=== PATIENT | male | born 1955 | race Caucasian/White ===

== ENCOUNTER 2019-03-29 13:43 | Inpatient (IN) | payer OTHER ==
[~2019-03-29] VITALS: Ht 182.9 cm; Wt 68.9 kg
[2019-03-29] MEDS ORDERED: TAMS-12 GT (13:56)
[2019-03-29] MEDS ORDERED: NA P133E RC (13:56)
[2019-03-29] MEDS ORDERED: LACT-96 GT (13:56)
[2019-03-29] MEDS ORDERED: TRAM50TA2 GT (13:56)
[2019-03-29] MEDS ORDERED: DOCU50LI GT (13:56)
[2019-03-29] MEDS ORDERED: OXYB5TAB11 GT (13:56)
[2019-03-29] MEDS ORDERED: ONDA4TAB5 GT (13:56)
[2019-03-29] MEDS ORDERED: ALBU2.5V38 IH ×2 (13:56)
[2019-03-29] MEDS ORDERED: THIA100T74 GT (13:56)
[2019-03-29] MEDS ORDERED: BISA10SU11 RC (13:56)
[2019-03-29] MEDS ORDERED: FAMO20TA8 GT (13:56)
[2019-03-29] MEDS ORDERED: AMIN30LI27 GT (13:56)
[2019-03-29] MEDS ORDERED: ACET-868 GT (13:56)
[2019-03-29] MEDS ORDERED: MAGN400O6 GT (13:56)
[2019-03-29] MEDS ORDERED: PANTOPRAZOLE 40 MG VIAL ONE (14:14)
[2019-03-29] MEDS ORDERED: PANTOPRAZOLE 40 MG VIAL IV ONE (14:30)
[2019-03-29] MEDS ORDERED: IV NS 0.9% 1,000 ML BAG IV ONE (14:30)
[2019-03-29 14:39] LABS: BASOPHILS % (AUTO) 0.5 % (0.0-2.0); EOSINOPHILS % (AUTO) 0.5 % (0.0-6.0); LYMPHOCYTES # (AUTO) 1.4 /CMM (0.8-4.8); LYMPHOCYTES % (AUTO) 19.5 % (20.0-44.0); MEAN CORPUSCULAR HGB CONC 35 g/dl (31.0-36.0); MEAN CORPUSCULAR VOLUME 93 fL (80-96); MONOCYTES % (AUTO) 13.6 % (2.0-12.0); NEUTROPHILS # (AUTO) 4.6 /CMM (1.8-8.9); NEUTROPHILS % (AUTO) 65.9 % (43.0-81.0); PLATELET COUNT (AUTO) 334 /CMM (150-450); RED BLOOD CELL COUNT(AUTO) 1.68 MIL/uL (4.5-6.0)
[2019-03-29 14:40] LABS: HEMATOCRIT 16 % (39-51); HEMOGLOBIN 5.5 g/dL (13.5-17.5)
[2019-03-29 14:52] LABS: CALCIUM, SERUM 8.8 mg/dL (8.5-10.1); CREATININE 0.6 mg/dL (0.6-1.3); POTASSIUM 3.4 mmol/L (3.5-5.1)
[2019-03-29 14:57] LABS: ALBUMIN 2.5 g/dL (3.4-5.0); BILIRUBIN,TOTAL 0.2 mg/dL (0.2-1.0); TOTAL PROTEIN, SERUM 6.6 g/dL (6.4-8.2)
[2019-03-29] MEDS ORDERED: TRAMADOL HCL 50 MG TABLET ONE (14:58)
[2019-03-29] MEDS ORDERED: BACLOFEN (10 MG) 10 MG TABLET ONE (14:58)
[2019-03-29] MEDS ORDERED: TRAMADOL HCL 50 MG TABLET PO ONE (15:00)
[2019-03-29] MEDS ORDERED: BACLOFEN (10 MG) 10 MG TABLET PO ONE (15:00)
[2019-03-29 15:40] LABS: LYMPHOCYTES % (MANUAL) 19 % (16-48); MONOCYTES % (MANUAL) 12 % (0-11.0); NEUTROPHILS % (MANUAL) 69 (42-76)
[2019-03-29] MEDS ORDERED: ONDANSETRON HCL/PF 4 MG/2 ML VIAL IV PRN (20:30)
[2019-03-29] MEDS ORDERED: HYDROCODONE/APAP 5/325MG 1 EACH TABLET PO PRN (20:30)
[2019-03-29] MEDS ORDERED: MORPHINE SULFATE INJ 2 MG/ML DISP.SYRIN IV PRN (20:30)
[2019-03-29] MEDS ORDERED: ACETAMINOPHEN 325 MG TABLET PO PRN (20:30)
[2019-03-29] MEDS: ALBUTEROL FS 2.5 MG/3 ML VIAL.NEB NEB SCH (21:00)
[2019-03-29 21:04] VITALS: BP 95/56
[2019-03-29 21:19] VITALS: BP 100/68
[2019-03-29] MEDS: TAMSULOSIN 0.4 MG CAP.SR.24H GT SCH (21:26)
[2019-03-29] MEDS: BACLOFEN (10 MG) 10 MG TABLET GT PRN (21:26)
[2019-03-29] MEDS: TRAMADOL HCL 50 MG TABLET GT PRN (21:27)
[2019-03-29] MEDS ORDERED: BACLOFEN (10 MG) 10 MG TABLET PO PRN (21:30)
[2019-03-29 21:50] VITALS: BP 98/59
[2019-03-29 22:00] VITALS: BP 105/57
[2019-03-29 22:50] VITALS: BP 95/57
[2019-03-29 23:50] VITALS: BP 101/58
[2019-03-30] VITALS (18 sets, daily range): BP systolic 94–119; BP diastolic 41–84
[2019-03-30] MEDS: ALBUTEROL FS 2.5 MG/3 ML VIAL.NEB NEB SCH ×4 (01:16→19:37)
[2019-03-30 07:00] LABS: BASOPHILS % (AUTO) 0.6 % (0.0-2.0); EOSINOPHILS % (AUTO) 0.4 % (0.0-6.0); LYMPHOCYTES # (AUTO) 1.1 /CMM (0.8-4.8); LYMPHOCYTES % (AUTO) 16.5 % (20.0-44.0); MEAN CORPUSCULAR HGB CONC 35 g/dl (31.0-36.0); MEAN CORPUSCULAR VOLUME 91 fL (80-96); MONOCYTES # (AUTO) 0.7 /CMM (0.1-1.30); NEUTROPHILS # (AUTO) 4.7 /CMM (1.8-8.9); NEUTROPHILS % (AUTO) 71.5 % (43.0-81.0); PLATELET COUNT (AUTO) 305 /CMM (150-450); WHITE BLOOD COUNT (AUTO) 6.5 K/uL (4.3-11.0)
[2019-03-30 07:07] LABS: RED BLOOD CELL COUNT(AUTO) 1.94 MIL/uL (4.5-6.0)
[2019-03-30 07:11] LABS: HEMATOCRIT 18 % (39-51); HEMOGLOBIN 6.1 g/dL (13.5-17.5)
[2019-03-30 07:21] LABS: CALCIUM, SERUM 8.6 mg/dL (8.5-10.1); CREATININE 0.5 mg/dL (0.6-1.3); POTASSIUM 3.6 mmol/L (3.5-5.1)
[2019-03-30] MEDS: BACLOFEN (10 MG) 10 MG TABLET GT PRN ×3 (08:56→21:11)
[2019-03-30] MEDS: TRAMADOL HCL 50 MG TABLET GT PRN ×3 (08:56→21:11)
[2019-03-30] MEDS ORDERED: Medication Not On Formulary EA (Ondansetron Hcl (Zofran) 4 MG) GT PRN (09:00)
[2019-03-30] MEDS ORDERED: TRAMADOL HCL 50 MG TABLET GT PRN ×2 (09:00)
[2019-03-30] MEDS ORDERED: BISACODYL SUPP (10 MG) 10 MG/SUPP.RECT SUPP.RECT RC PRN (09:00)
[2019-03-30] MEDS ORDERED: JEVITY 1.2 CAL 1,000 ML BOTTLE GT PRN (09:00)
[2019-03-30] MEDS ORDERED: ACETAMINOPHEN 650 MG/20.3 ML UDC GT PRN (09:00)
[2019-03-30] MEDS ORDERED: NA PHOS,M-B/NA PHOS,DI-BA 1 EA ENEMA RC PRN (09:00)
[2019-03-30] MEDS ORDERED: MAGNESIUM HYDROXIDE 30 ML UDC GT PRN (09:00)
[2019-03-30 09:10] LABS: BAND % (MANUAL) 1 % (0.0-5.0); LYMPHOCYTES % (MANUAL) 21 % (16-48); MONOCYTES % (MANUAL) 10 % (0-11.0); NEUTROPHILS % (MANUAL) 68 (42-76)
[2019-03-30] MEDS: FAMOTIDINE (20 MG) 20 MG TABLET GT SCH ×2 (09:51→21:10)
[2019-03-30] MEDS: PANTOPRAZOLE 40 MG TABLET.DR PO SCH (09:51)
[2019-03-30] MEDS: OXYBUTYNIN CHLORIDE 5 MG TABLET GT SCH ×2 (09:51→16:48)
[2019-03-30] MEDS: THIAMINE HCL 100 MG TABLET GT SCH (09:51)
[2019-03-30] MEDS: DOCUSATE SODIUM LIQ 100 MG/10 ML UDC GT SCH ×2 (09:51→16:48)
[2019-03-30] MEDS: PROSTAT (PYXIS) 30 ML UDC GT SCH (09:52)
[2019-03-30] MEDS ORDERED: ALBUTEROL FS 2.5 MG/0.5 ML VIAL.NEB NEB PRN (13:30)
[2019-03-30] MEDS ORDERED: Medication Not On Formulary EA (Albuterol Sulfate 2.5 MG) IH SCH (13:30)
[2019-03-30] MEDS ORDERED: Z GUARD REMEDY 2 OZ OINT TP PRN (17:00)
[2019-03-30] MEDS: TAMSULOSIN 0.4 MG CAP.SR.24H GT SCH (21:10)
[2019-03-30] MEDS ORDERED: TAMSULOSIN 0.4 MG CAP.SR.24H GT SCH (22:00)
[2019-03-31] MEDS: ALBUTEROL FS 2.5 MG/3 ML VIAL.NEB NEB SCH ×4 (01:19→19:17)
[2019-03-31 04:00] VITALS: BP 107/66
[2019-03-31] MEDS: BACLOFEN (10 MG) 10 MG TABLET GT PRN ×3 (06:46→19:11)
[2019-03-31] MEDS: TRAMADOL HCL 50 MG TABLET GT PRN ×3 (06:47→19:11)
[2019-03-31 07:00] LABS: BASOPHILS % (AUTO) 0.4 % (0.0-2.0); EOSINOPHILS % (AUTO) 0.2 % (0.0-6.0); HEMATOCRIT 24 % (39-51); HEMOGLOBIN 8.3 g/dL (13.5-17.5); LYMPHOCYTES # (AUTO) 0.9 /CMM (0.8-4.8); LYMPHOCYTES % (AUTO) 15.6 % (20.0-44.0); MEAN CORPUSCULAR HGB CONC 35 g/dl (31.0-36.0); MEAN CORPUSCULAR VOLUME 89 fL (80-96); MONOCYTES # (AUTO) 0.8 /CMM (0.1-1.30); MONOCYTES % (AUTO) 13.9 % (2.0-12.0); NEUTROPHILS # (AUTO) 4.1 /CMM (1.8-8.9); NEUTROPHILS % (AUTO) 69.9 % (43.0-81.0); PLATELET COUNT (AUTO) 333 /CMM (150-450); RED BLOOD CELL COUNT(AUTO) 2.69 MIL/uL (4.5-6.0); WHITE BLOOD COUNT (AUTO) 5.8 K/uL (4.3-11.0)
[2019-03-31 07:13] LABS: CALCIUM, SERUM 8.8 mg/dL (8.5-10.1); CREATININE 0.5 mg/dL (0.6-1.3); MAGNESIUM 1.8 mg/dL (1.8-2.4); POTASSIUM 3.4 mmol/L (3.5-5.1)
[2019-03-31 08:00] VITALS: BP 118/76
[2019-03-31] MEDS: THIAMINE HCL 100 MG TABLET GT SCH (09:01)
[2019-03-31] MEDS: OXYBUTYNIN CHLORIDE 5 MG TABLET GT SCH ×2 (09:01→17:07)
[2019-03-31] MEDS: FAMOTIDINE (20 MG) 20 MG TABLET GT SCH ×2 (09:01→21:20)
[2019-03-31] MEDS: DOCUSATE SODIUM LIQ 100 MG/10 ML UDC GT SCH ×2 (09:01→17:07)
[2019-03-31] MEDS: PANTOPRAZOLE 40 MG TABLET.DR PO SCH (09:01)
[2019-03-31] MEDS: PROSTAT (PYXIS) 30 ML UDC GT SCH (09:02)
[2019-03-31] MEDS ORDERED: POTASSIUM CHLORIDE 20 MEQ TAB.PRT.SR PO SCH (11:00)
[2019-03-31 12:00] VITALS: BP 108/69
[2019-03-31] MEDS ORDERED: POTASSIUM CHLORIDE 20 MEQ TAB.PRT.SR PO ONE (13:00)
[2019-03-31 16:00] VITALS: BP 125/78
[2019-03-31 20:00] VITALS: BP 100/60
[2019-03-31] MEDS: TAMSULOSIN 0.4 MG CAP.SR.24H GT SCH ×2 (21:45→22:00)
[2019-04-01] MEDS: BACLOFEN (10 MG) 10 MG TABLET GT PRN ×2 (01:11→08:25)
[2019-04-01] MEDS: TRAMADOL HCL 50 MG TABLET GT PRN ×2 (01:11→08:25)
[2019-04-01] MEDS: ALBUTEROL FS 2.5 MG/3 ML VIAL.NEB NEB SCH ×3 (01:30→13:40)
[2019-04-01 04:00] VITALS: BP 92/68
[2019-04-01 06:16] LABS: BASOPHILS % (AUTO) 0.2 % (0.0-2.0); EOSINOPHILS % (AUTO) 0.4 % (0.0-6.0); HEMATOCRIT 25 % (39-51); HEMOGLOBIN 8.7 g/dL (13.5-17.5); LYMPHOCYTES # (AUTO) 0.7 /CMM (0.8-4.8); LYMPHOCYTES % (AUTO) 10.7 % (20.0-44.0); MEAN CORPUSCULAR HGB CONC 35 g/dl (31.0-36.0); MEAN CORPUSCULAR VOLUME 89 fL (80-96); MONOCYTES # (AUTO) 0.8 /CMM (0.1-1.30); MONOCYTES % (AUTO) 11.6 % (2.0-12.0); NEUTROPHILS # (AUTO) 5.2 /CMM (1.8-8.9); NEUTROPHILS % (AUTO) 77.1 % (43.0-81.0); PLATELET COUNT (AUTO) 357 /CMM (150-450); RED BLOOD CELL COUNT(AUTO) 2.81 MIL/uL (4.5-6.0); WHITE BLOOD COUNT (AUTO) 6.7 K/uL (4.3-11.0)
[2019-04-01 06:30] LABS: CALCIUM, SERUM 9.1 mg/dL (8.5-10.1); CREATININE 0.5 mg/dL (0.6-1.3); POTASSIUM 3.3 mmol/L (3.5-5.1)
[2019-04-01 08:00] VITALS: BP 102/55
[2019-04-01] MEDS: PANTOPRAZOLE 40 MG TABLET.DR PO SCH (09:31)
[2019-04-01] MEDS: DOCUSATE SODIUM LIQ 100 MG/10 ML UDC GT SCH (10:09)
[2019-04-01] MEDS: OXYBUTYNIN CHLORIDE 5 MG TABLET GT SCH (10:09)
[2019-04-01] MEDS: FAMOTIDINE (20 MG) 20 MG TABLET GT SCH (10:09)
[2019-04-01] MEDS: THIAMINE HCL 100 MG TABLET GT SCH (10:09)
[2019-04-01] MEDS: PROSTAT (PYXIS) 30 ML UDC GT SCH (10:10)
[2019-04-01] MEDS ORDERED: POTASSIUM CHLORIDE 20 MEQ TAB.PRT.SR PO SCH (12:30)
== END 2019-04-01 14:20 | DRG 663 ==
LOC: ER 13:50 → MEDSG1 18:23
PROVIDERS: ADMIT Legal Medicine; ATTEND Legal Medicine
PROC: 30233N1 Transfusion of Nonautologous Red Blood Cells into Peripheral Vein, Percutaneous Approach (ICD-10-PCS; principal; 2019-03-29)
DX: D50.9 Iron deficiency anemia, unspecified (principal); J96.10 Chronic respiratory failure, unspecified whether with hypoxia or hypercapnia; Z93.0 Tracheostomy status; I10 Essential (primary) hypertension; K21.9 Gastro-esophageal reflux disease without esophagitis; G89.29 Other chronic pain; Z93.1 Gastrostomy status; S14.102S Unspecified injury at C2 level of cervical spinal cord, sequela; X58.XXXS Exposure to other specified factors, sequela
CPT/HCPCS: 31720; 36415; 71045-TC; 80048-TC; 80076-TC; 83690-TC; 83735-TC; 85025-TC; 85027-TC; 85730-TC; 86850-TC; 86921-TC; 87081-TC; 94760-TC; A4217; A4623; C9113; G0378; J7030; J7040; J7050; P9016-BL